=== PATIENT | female | born 2000 | race Caucasian/White ===

== ENCOUNTER 2023-12-19 18:30 | Emergency (ER) | payer BC, SELFPAY ==
[2023-12-19 18:36] VITALS: BP 129/76
--- NOTE | 2023-12-19 19:07 | ED.GENMED ---
History of Present Illness
General
Chief Complaint: Musculo-Skeletal Complaint
Time Seen by Provider: 12/19/23 18:44
History of Present Illness
History of Present Illness:
Patient is a 23-year-old woman who is otherwise healthy presenting to the emergency department with left leg pain. Patient states that she was in a hockey game when the field hockey ball hit her painter. She was she wearing painter guards. The area to
her left painter immediately swelled up. Her customer service trainer told her to come to the emergency department for further evaluation. Patient has been ambulatory. No numbness tingling. No weakness. She states that this happened in her before on the right leg.
No history of easy bleeding or bruising.
Phy Exam
Physical Exam
Physical Exam:
GENERAL: in no acute distress
HEENT: normocephalic, extraocular movements intact, moist oral mucosa
NECK: normal inspection
RESPIRATORY: no respiratory distress, clear to auscultation bilaterally
CARDIOVASCULAR: regular rate and rhythm
EXTREMITIES: Left lower extremity with ecchymoses to the medial of the tibial tuberosity with tenderness at the tibial tuberosity. 5 out of 5 strength in lower extremity, neurovascularly intact
NEUROLOGIC: awake and alert, moves all extremities
SKIN: warm
Course
Orders/Labs/Results
Orders:
Orders
12/19/23 19:05
CR Knee - Left 4 Or More View* Urgent
Comment:
Reason For Exam: tib tuberosity pain
CR Leg Tibia/fibula Left 2 Vw Urgent
Comment:
Reason For Exam: painter pain
Vital Signs
Initial and Last Documented VS:
Initial Vital Signs
Temp Pulse BP Pulse Ox
98.3 F 68 129/76 99
12/19/23 18:36 12/19/23 18:36 12/19/23 18:36 12/19/23 18:36
Last Documented Vital Signs
Temp Pulse BP Pulse Ox
98.3 F 68 129/76 99
12/19/23 18:36 12/19/23 18:36 12/19/23 18:36 12/19/23 18:36
MDM/Problems Addressed
Differential Diagnosis Includes:
Patient is a 23-year-old woman was otherwise healthy presenting to the emergency department with leg pain after chill hockey ball hit the painter. Vitals unremarkable and exam does show tenderness at the tibial tuberosity with associated ecchymosis
just medial to the area. She does have full strength. Given the bone tenderness we will rule out fracture with an x-ray. She does state the swelling has improved with the Bonilla wrap. She is ambulatory which is reassuring. Patient educated on
icing and elevating it and placing the Bonilla wrap on to help with swelling. She does not have a game tomorrow. I did recommend resting to help with the bruising. If the x-ray is normal patient can be discharged.
*Critical Care Note
Total Time (30-74mins, 75-104mins- exclusive of procedures): Not Applicable
Update Note
Update Note:
X-ray per my interpretation without any acute fracture. Patient is ambulatory. I did offer pain medications however patient declined. Will discharge at this time. Education and strict return precautions given
ED Attending Note
-
Portions of this chart may have been created with voice recognition software.� Occasional wrong word or��sound alike� substitutions may have occurred due to the inherent limitations of voice recognition software.
Discharge Plan
Departure
Patient Disposition: Home (Routine Discharge)
Date of Disposition: 12/19/23
Time of Disposition: 20:09
Patient with high blood pressure during this ER visit?: No
Discharge Problem:
Leg pain, anterior
Instructions: Contusion (DC)
Interventions
Interventions:
*Risk Screen - Suicide Last Done: 12/19/23 18:38
*General Assessment Last Done: 12/19/23 18:38
*Neglect/Abuse Screening Last Done: 12/19/23 18:38
Discharge Date and Time
Print Language: MALIAN
== END 2023-12-19 20:35 | disposition home or self-care (01) ==
LOC: EMR 18:30
PROVIDERS: EMERGENCY PHYSICIAN Student in an Organized Health Care Education/Training Program
DX: M79.605 Pain in left leg (principal); S80.12XA Contusion of left lower leg, initial encounter; M79.89 Other specified soft tissue disorders; W21.09XA Struck by other hit or thrown ball, initial encounter; Y93.65 Activity, lacrosse and field hockey; Y92.328 Other athletic field as the place of occurrence of the external cause
CPT/HCPCS: 99283; 73564; 73590